=== PATIENT | male | born 1970 | race Caucasian/White ===

== ENCOUNTER 2019-04-25 18:52 | Emergency (ER) | payer BC ==
[2019-04-25] MEDS ORDERED: predniSONE 20 MG TAB PO STA (19:15)
--- NOTE | 2019-04-25 19:40 | XR ---
EXAMINATION TYPE: XR chest 2V DATE OF EXAM: 04/25/2019 COMPARISON: 03/17/2011 HISTORY: Headache. Short of breath TECHNIQUE: 2 views FINDINGS: Heart is normal. Lungs are clear of infiltrate. There is no pleural effusion. Bony thorax i s intact. There is right shoulder surgery. IMPRESSION: No active cardiopulmonary disease. Normal heart. No change.
--- NOTE | 2019-04-25 19:58 | ED ---
URI HPI - General Chief Complaint: Upper Respiratory Infection Stated Complaint: Flu Time Seen by Provider: 04/25/19 19:08 Source: patient Mode of arrival: ambulatory Limitations: no limitations - History of Present Illness Initial Comments: 48-year-old male presenting today for chief complaint of cough congestion. Patient states that he has had cough for the past 2 weeks. He states that last week he had chills and felt as though he had a fever however did not have a thermometer to record his temperature. Patient states this sensation resolved however he has had significant cough increased at night he states has been keeping him up. Patient states is occasional pain in his chest with the cough he denies is being persistent denies any pain with deep inspiration or hemoptysis. Denies leg swelling. Patient states he still has nasal congestion. He states sometimes he has to throw to the cough but has had negative strep pharyngitis testing outpatient as well as influenza testing when he saw his primary care provider on Wednesday. Patient states he was at this time prescribed Tessalon Perles however he states that these were not working to control symptoms and he states he has been taking NyQuil and other [id number] antitussives which do not seem to help. Patient states he feels like he is out of solutions to help with symptoms of this cough and presents emergency department today for evaluation and to ensure there was no developing pneumonia. - Related Data Previous Rx's Medication Instructions Recorded Promethaz-Cod 6.25-10 mg/5 ml 5 ml PO Q6HR PRN 3 Days #60 ml 04/25/19 [Phenergan with Codeine] Allergies Allergy/AdvReac Type Severity Reaction Status Date / Time No Known Allergies Allergy Verified 04/25/19 19:06 Review of Systems ROS Statement: Those systems with pertinent positive or pertinent negative responses have been documented in the HPI. ROS Other: All systems not noted in ROS Statement are negative. Past Medical History Past Medical History: Pneumonia Additional Past Medical History / Comment(s): headaches History of Any Multi-Drug Resistant Organisms: None Reported Additional Past Surgical History / Comment(s): left sided facial and skull is metal plate Past Psychological History: No Psychological Hx Reported Smoking Status: Never smoker Past Alcohol Use History: Rare Past Drug Use History: None Reported General Exam - General Exam Comments Initial Comments: General: The patient is awake and alert, in no distress, and does not appear acutely ill. Eye: +3 mm pupils are equal, round and reactive to light, extra-ocular movements are intact. No nystagmus. There is normal conjunctiva bilaterally. No signs of icterus. No photophobia Ears, nose, mouth and throat: There are moist mucous membranes and no oral lesions. Oropharynx was not erythematous there is no tonsillar enlargement exudates or lesions. Uvula midline. Tympanic membranes are not erythematous or is no effusions bulging or retraction. No tenderness to palpation of the mastoid. No anterior cervical lymphadenopathy. Rhinorrhea, clear and bilateral nares. No tripoding, no drooling. Neck: The neck is supple, there is no tenderness or JVD. No nuchal rigidity Cardiovascular: There is a regular rate and rhythm. No murmur, rub or gallop is appreciated. Respiratory: Lungs are clear to auscultation, respirations are non-labored, breath sounds are equal. No wheezes, stridor, rales, or rhonchi. No retractions or abdominal breathing. Gastrointestinal: Soft, non-distended, non-tender abdomen without masses or organomegaly noted. There is no rebound or guarding present. Bowel sounds are unremarkable. Musculoskeletal: Normal ROM, no tenderness. Strength 5/5. Sensation intact. Radial pulses equal bilaterally 2+. Neurological: A&O x 3. CN II-XII intact, There are no obvious motor or sensory deficits. Coordination appears grossly intact. Speech appears normal, no muffling. Skin: Skin is warm and dry and no rashes or lesions are noted. No extremity edema Psychiatric: Cooperative Limitations: no limitations Course Vital Signs 04/25/19 04/25/19 19:00 20:12 Temperature 97.9 F 98.1 F Pulse Rate 80 77 Respiratory 19 17 Rate Blood Pressure 141/75 122/80 O2 Sat by Pulse 96 99 Oximetry Medical Decision Making - Medical Decision Making 48-year-old male presenting today for chief complaint of persistent cough. Increasing at night. Patient afebrile nontoxic-appearing upon arrival. Lungs clear. No friction rub. EKG no acute findings. Patient denies any current chest pain. No findings consistent with pneumonia on chest x-ray. Patient complains sounds as those consistent with postnasal drip. Patient failed outpatient symptomatically with [id number] medications as well as Tessalon Perles at this time given patient's lack of sleep with prescribed promethazine with codeine. Discussed the risk involved as this is a narcotic. Patient verbalized understanding and we discussed at length the use a specific avoidance. Patient side opioids start talking form. Otherwise at this time feel patient is stable for discharge with outpatient primary care follow-up patient is agreeable, and was given 1 dose of prednisone in the emergency department. Patient's clinical findings appearing most consistent with bronchitis most likely viral nature vs post nasal drip. Discussed case with attending provider Dr. Saucedo who was agreeable with care plan. EKG: Ventricular rate 79 bpm, KY interval 158 ms, QR denominational 78 ms, QT/QTC 368/421 ms. Normal sinus rhythm normal EKG no ST elevation depression or diffuse [place] depression. - Lab Data Lab Results 04/25/19 Range/Units 19:22 Influenza Type A RNA Not Detected (Not Detectd) Influenza Type B (PCR) Not Detected (Not Detectd) Disposition Clinical Impression: Cough Disposition: HOME SELF-CARE Condition: Good Instructions (If sedation given, give patient instructions): Upper Respiratory Infection (ED) Additional Instructions: Please use medication as discussed. Please follow-up with family doctor in the next 2 days. Please return to emergency room if the symptoms increase or worsen or for any other concerns. Prescriptions: Promethaz-Cod 6.25-10 mg/5 ml [Phenergan with Codeine] 5 ml PO Q6HR PRN 3 Days #60 ml PRN Reason: Cough Is patient prescribed a controlled substance at d/c from ED?: Yes When asked, does pt state using other controlled substances?: No If prescribed controlled substance>3 days was MAPS reviewed?: Prescribed <3 Days If opioid is for acute pain is fill amount 7 days or less?: Yes If Rx opioid, was Start Talking consent form obtained?: Yes Referrals: None,Stated [Primary Care Provider] - 1-2 days Time of Disposition: 19:57
[2019-04-25 20:13] VITALS: BP 122/80; PULSE 77; RESP 17; TEMP 98.1
== END 2019-04-25 20:13 | disposition home or self-care (01) ==
LOC: EC 18:52
DX: R05 Cough (principal); Z72.820 Sleep deprivation; J34.89 Other specified disorders of nose and nasal sinuses
CPT/HCPCS: 93005; 87502; 71046; 99284; J7512

== ENCOUNTER 2020-11-02 19:56 | Emergency (ER) | payer BC ==
[2020-11-02] MEDS: KETOROLAC 15 MG/ML 1 ML VIAL IVP STA (20:26)
[2020-11-02] MEDS: SODIUM CHLORIDE 0.9% 1,000 ML IV ONE (20:26)
[2020-11-02] MEDS: METOCLOPRAMIDE 5 MG/ML 2 ML VIAL IVP STA (20:26)
[2020-11-02] MEDS: diphenhydrAMINE 50 MG/ML 1 ML VIAL IVP STA (20:27)
--- NOTE | 2020-11-02 20:59 | ED ---
Headache HPI - General Chief Complaint: Headache Stated Complaint: migraine Time Seen by Provider: 11/02/20 20:10 Mode of arrival: ambulatory Limitations: no limitations - History of Present Illness Initial Comments: 49 year-old male patient presents to the emergency department for evaluation of headache. States the pain is just above his left eye, started yesterday. States that the area feels tender to touch. Denies history of similar headache. Does have history of migraines with worse pain, but they felt different. Denies any blurred or double vision. Denies nausea or vomiting. Denies dizziness, numbness, tingling, or weakness. Denies any recent head injury. Does have history of head trauma 4 years ago, has a titanium plate in his skull, surgical site is near area of pain. Patient denies any recent rash, fever, chills, cough, shortness of breath, chest pain, abdominal pain, diarrhea, constipation, back pain, hematuria, dysuria, urinary urgency, urinary frequency, or any other complaints. - Related Data Previous Rx's Medication Instructions Recorded Promethaz-Cod 6.25-10 mg/5 ml 5 ml PO Q6HR PRN 3 Days #60 ml 04/25/19 [Phenergan with Codeine] valACYclovir HCL 1,000 mg PO BID #14 tab 11/02/20 Allergies Allergy/AdvReac Type Severity Reaction Status Date / Time No Known Allergies Allergy Verified 11/02/20 19:58 Review of Systems ROS Statement: Those systems with pertinent positive or pertinent negative responses have been documented in the HPI. ROS Other: All systems not noted in ROS Statement are negative. Past Medical History Past Medical History: Pneumonia Additional Past Medical History / Comment(s): headaches History of Any Multi-Drug Resistant Organisms: None Reported Additional Past Surgical History / Comment(s): left sided facial and skull is metal plate Past Psychological History: No Psychological Hx Reported Smoking Status: Never smoker Past Alcohol Use History: Rare Past Drug Use History: None Reported General Exam Limitations: no limitations General appearance: alert, in no apparent distress, other (This is a well- developed, well-nourished adult male patient in no acute distress. Vital signs upon presentation are temperature 98.1F, pulse 65, respirations 16, blood pressure 137/87, pulse ox 96% on room air.) Eye exam: Present: normal appearance, PERRL, EOMI. Absent: scleral icterus, conjunctival injection, nystagmus, periorbital swelling ENT exam: Present: normal exam, normal oropharynx, mucous membranes moist Respiratory exam: Present: normal lung sounds bilaterally. Absent: respiratory distress, wheezes, rales, rhonchi, stridor Cardiovascular Exam: Present: regular rate, normal rhythm, normal heart sounds. Absent: systolic murmur, diastolic murmur, rubs, gallop, clicks GI/Abdominal exam: Present: soft, normal bowel sounds. Absent: distended, tende rness, guarding, rebound, rigid Neurological exam: Present: alert, oriented X3, CN II-XII intact Expanded Speech: Present: fluid speech Cranial nerves: EOM's Intact: Normal, Nystagmus: Normal Motor strength exam: RUE: 5, LUE: 5, RLE: 5, LLE: 5 Psychiatric exam: Present: normal affect, normal mood Skin exam: Present: warm, dry, intact, normal color. Absent: rash Course Vital Signs 11/02/20 19:58 Temperature 98.1 F Pulse Rate 65 Respiratory 16 Rate Blood Pressure 137/87 O2 Sat by Pulse 96 Oximetry Medical Decision Making - Medical Decision Making 49-year-old male patient presented to the emergency department today for evaluation of headache to the left frontal region. Physical examination did reveal tenderness over the area. He is neurologically intact with no focal deficits. He is given IV fluids, Toradol, Reglan, Benadryl. CT brain and orbits negative for acute abnormalities. On reevaluation is resting comfortably in bed. States the pain is much better. He saw reporting a 5 out of 10 on the pain scale. He'll be given additional dose of pain medicine but does feel couple being discharged home. Given tenderness and description of pain we will give perception for valacyclovir for possibility of shingles, he is urged to take this if he develops a rash over the area. Return parameters were discussed in detail. He verbalizes understanding and agrees with this plan. Case discussed with my attending Dr. Jacobs. - Radiology Data Radiology results: report reviewed, image reviewed CT brain without contrast was obtained. Report is reviewed in its entirety. Impression by Dr. Soto shows old encephalomalacia anterior left frontal lobe. Previous left frontal bone surgery. No acute intracranial abnormality. Orbital CT was obtained. Report is reviewed in its entirety. Impression by Dr. Soto shows old left-sided facial fractures. Fracture left carpal 4. No acute fracture seen. 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 Disposition Clinical Impression: Headache Disposition: HOME SELF-CARE Condition: Good Instructions (If sedation given, give patient instructions): Acute Headache (ED) Additional Instructions: Increase fluids. Rest . Follow up with primary care physician for recheck in 1-2 days. Start the valacyclovir if you develop any rash over the area. Return to the emergency department for any new, worsening, or concerning symptoms. Prescriptions: valACYclovir HCL 1,000 mg PO BID #14 tab Is patient prescribed a controlled substance at d/c from ED?: No Referrals: Jeramy Davis MD [Primary Care Provider] - 1-2 days Time of Disposition: 21:27
--- NOTE | 2020-11-02 21:09 | CT ---
EXAMINATION TYPE: CT brain wo con DATE OF EXAM: 11/02/2020 COMPARISON: None HISTORY: Headache with history of trauma and surgery [address] DLP: 961 mGycm Automated exposure control for dose reduction was used. There is hypodensity in the inferior left frontal lobe consistent with encephalomalacia. There are larsen rgical clips over the left frontal bone. There is no mass effect nor midline shift. There is no sign of intracranial hemorrhage. Sella turcica appears normal. There is no evidence of a fracture. IMPRESSION: Old encephalomalacia inferior left frontal lobe. Previous left frontal bone surgery. No acute intracr anial abnormality.
--- NOTE | 2020-11-02 21:12 | CT ---
EXAMINATION TYPE: CT orbits wo con DATE OF EXAM: 11/02/2020 COMPARISON: None HISTORY: Headache with history of trauma and surgery [address] DLP: 961 mGycm Automated exposure control for dose reduction was used. Images are obtained from the bottom of the maxilla to the top of the frontal sinuses without contrast . There is plate with screws fixing the floor of the anterior left bony orbit. There is plate with scre ws fixing the lateral left bony orbit. There is plate fixing the lateral aspect of the left frontal b one. There is evidence of an old blowout fracture at the floor of the left bony orbit. There is herni ated fat into the left maxillary sinus and mild depression of the floor of the left orbit. I see no a cute fracture. There is hypodensity in the inferior left frontal lobe. There is small fluid level lef t maxillary sinus. Nasal bone is intact. There is mild posterior displacement of the anterior wall le ft maxillary sinus related to old fracture. IMPRESSION: Old left side facial fractures. Old blowout fracture left orbital floor. No acute fracture seen. 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
[2020-11-02] MEDS: HYDROmorphone 0.5 MG/0.5 ML SYRINGE IVP STA (22:28)
[2020-11-02 22:46] VITALS: BP 130/72; PULSE 72; RESP 18; TEMP 98
== END 2020-11-02 22:40 | disposition home or self-care (01) ==
LOC: EC 19:56
DX: R51.9 Headache, unspecified (principal)
CPT/HCPCS: 70450; 70480; 99283; 96374; 96375 ×3; 96361; J1200; J2765; J1885; J1170

== ENCOUNTER 2021-01-10 10:30 | Emergency (ER) | payer BC ==
[2021-01-10 10:49] VITALS: RESP 18; TEMP 98.1
--- NOTE | 2021-01-10 11:46 | ED ---
Lower Extremity Injury HPI - General Chief Complaint: Extremity Injury, Lower Stated Complaint: Left leg injury Time Seen by Provider: 01/10/21 11:22 Source: patient, RN notes reviewed Mode of arrival: wheelchair Limitations: no limitations - History of Present Illness Initial Comments: This is a 50-year-old male presents emergency Department chief complaint of left leg pain. Patient CT is in some shingles up it's roof in which he felt a snap in his left calf region. Patient states he had instant pain states is pain with movement of his foot. Patient denies any prior issues. Patient has no ankle or foot pain. - Related Data Previous Rx's Medication Instructions Recorded Promethaz-Cod 6.25-10 mg/5 ml 5 ml PO Q6HR PRN 3 Days #60 ml 04/25/19 [Phenergan with Codeine] valACYclovir HCL 1,000 mg PO BID #14 tab 11/02/20 Ibuprofen [Motrin] 600 mg PO Q8HR PRN #20 tab 01/10/21 Allergies Allergy/AdvReac Type Severity Reaction Status Date / Time No Known Allergies Allergy Verified 01/10/21 10:46 Review of Systems ROS Statement: Those systems with pertinent positive or pertinent negative responses have been documented in the HPI. ROS Other: All systems not noted in ROS Statement are negative. Past Medical History Past Medical History: Pneumonia Additional Past Medical History / Comment(s): headaches History of Any Multi-Drug Resistant Organisms: None Reported Additional Past Surgical History / Comment(s): left sided facial and skull is metal plate Past Psychological History: No Psychological Hx Reported Smoking Status: Never smoker Past Alcohol Use History: Rare Past Drug Use History: None Reported General Exam Limitations: no limitations General appearance: alert, in no apparent distress Head exam: Present: atraumatic, normocephalic, normal inspection Respiratory exam: Present: normal lung sounds bilaterally. Absent: respiratory distress, wheezes, rales, rhonchi, stridor Cardiovascular Exam: Present: regular rate, normal rhythm, normal heart sounds. Absent: systolic murmur, diastolic murmur, rubs, gallop, clicks Extremities exam: Present: other (There is moderate left calf tenderness, swelling noted no ecchymotic areas, pain with range of motion of his foot reports pain in his calf, neurovascular intact, negative Key test) Neurological exam: Present: alert, reflexes normal. Absent: motor sensory deficit Skin exam: Present: warm, dry, intact, normal color. Absent: rash Course Vital Signs 01/10/21 10:43 Temperature 98.1 F Pulse Rate 77 Respiratory 18 Rate Blood Pressure 105/72 O2 Sat by Pulse 96 Oximetry Medical Decision Making - Medical Decision Making 50-year-old presented for left leg pain. Patient has a gastrocnemius strain versus tear does not appear to be a complete rupture will follow-up with orthopedics we placed on crutches. Disposition Clinical Impression: Gastrocnemius strain, left Disposition: HOME SELF-CARE Condition: Stable Instructions (If sedation given, give patient instructions): Muscle Strain (ED) Additional Instructions: Please return to the Emergency Department if symptoms worsen or any other concerns. Prescriptions: Ibuprofen [Motrin] 600 mg PO Q8HR PRN #20 tab PRN Reason: Pain Is patient prescribed a controlled substance at d/c from ED?: No Referrals: Jeramy Davis MD [Primary Care Provider] - 1-2 days Keshawn Anguiano MD [Medical Doctor] - 1-2 days
--- NOTE | 2021-01-10 12:14 | XR ---
EXAMINATION TYPE: XR tibia fibula LT, 2 views DATE OF EXAM: 01/10/2021 Comparison: None Clinical History: 50-year-old male pain Findings: Smooth delineation to the Achilles tendon. No knee joint effusion seen. The extensor mechanism also a ppears intact. Very minimal tricompartmental degenerative spurring at the knee. No acute fracture, larsen bluxation, or dislocation. Impression: No acute osseous abnormality seen.
[2021-01-10] MEDS ORDERED: ACET/COD 300 MG/30 MG STARTER PACK 6 TAB BTL PO STA (12:22)
[2021-01-10 12:32] VITALS: BP 120/67; PULSE 78
== END 2021-01-10 12:32 | disposition home or self-care (01) ==
LOC: EC 10:30
DX: S86.812A Strain of other muscle(s) and tendon(s) at lower leg level, left leg, initial encounter (principal); X58.XXXA Exposure to other specified factors, initial encounter
CPT/HCPCS: 99283